=== PATIENT | male | born 1990 | race Caucasian/White ===

== ENCOUNTER 2018-02-19 22:24 | Emergency (ER) | payer SELFPAY ==
[~2018-02-19] VITALS: Ht 165.1 cm; Wt 57.6 kg
[2018-02-19 22:32] VITALS: Ht 165.1 cm; Wt 57.6 kg
[2018-02-20 00:11] VITALS: BP 119/88
== END 2018-02-20 00:11 | disposition other institution (70) ==
LOC: ED 22:24
DX: S51.811A Laceration without foreign body of right forearm, initial encounter (principal); E86.0 Dehydration; F15.20 Other stimulant dependence, uncomplicated; Y04.8XXA Assault by other bodily force, initial encounter; Y93.89 Activity, other specified; Y92.89 Other specified places as the place of occurrence of the external cause; Y99.8 Other external cause status

== ENCOUNTER 2018-02-20 00:05 | Emergency (ER) | payer OTHER | END 2018-02-20 00:11 | disposition other institution (70) | LOC: ED 00:05 | DX: Z02.89 Encounter for other administrative examinations (principal) ==